=== PATIENT | male | born 1945 | race Caucasian/White ===

== ENCOUNTER → 2017-12-27 | Outpatient (CLI) | payer MEDICARE | END | disposition home or self-care (01) | LOC: RAD 12:25 | PROVIDERS: ATTEND Family Medicine | DX: N45.1 Epididymitis (principal); N50.819 Testicular pain, unspecified; R10.30 Lower abdominal pain, unspecified | CPT/HCPCS: 76857; 76870 ==

== ENCOUNTER 2019-01-09 09:35 | Emergency (ER) | payer MEDICARE ==
[~2019-01-09] VITALS: Ht 180.3 cm; Wt 74.9 kg
[2019-01-09 09:36] VITALS: BP 127/76
--- NOTE | 2019-01-09 09:36 | NUR ---
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
[2019-01-09] MEDS ORDERED: TERA10CA3 PO (09:48)
[2019-01-09] MEDS ORDERED: FINA5TAB4 PO (09:48)
== END 2019-01-09 11:28 | disposition home or self-care (01) ==
LOC: ED 11:22
DX: S86.112A Strain of other muscle(s) and tendon(s) of posterior muscle group at lower leg level, left leg, initial encounter (principal); X58.XXXA Exposure to other specified factors, initial encounter; Y93.89 Activity, other specified; Y92.89 Other specified places as the place of occurrence of the external cause; Y99.8 Other external cause status
CPT/HCPCS: 99284